=== PATIENT | male | born 1950 | race African-American/Black ===

== ENCOUNTER 2019-05-02 12:52 | Inpatient (IN) ==
[2019-05-02 14:36] LABS: Basophils % 0.2 % (0.0-0.8); Eosinophils # 2.6 10*3/uL (0.0-0.87); Eosinophils % 44.9 % (0.00-10.9); Hemoglobin 11.6 GM/DL (14.0-18.0); Immature Granulocytes % 0.2 %; Immature Granulocytes Absolute 0.01 #; Lymphocytes # 1.1 10*3/uL (1.4-4.0); Lymphocytes % 19.2 % (21.2-54.2); Mean Corpuscular HGB Conc 33.1 GM/DL (32-36); Mean Corpuscular Volume 105.1 FL (87-102); Mean Platelet Volume 9.7 FL (9.6-12.0); Monocytes % 4.5 % (1.7-12.7); Platelet Count 189 T/CUMM (130-400); Red Blood Count 3.33 MC/CUMM (3.8-5.5); Red Cell Distribution Width 13.9 % (9.3-17.3); White Blood Count 5.7 T/CUMM (4-12)
[2019-05-02 14:44] LABS: PT Patient Result 11.2 SECS
[2019-05-02 14:59] LABS: Alanine Aminotransferase 21 U/L (16-61); Albumin 4.1 G/DL (3.4-5.0); Alkaline Phosphatase 84 U/L (45-117); Aspartate Amino Transferase 27 U/L (0-37); Blood Urea Nitrogen 14 MG/DL (7-18); Calcium 9.6 MG/DL (8.5-10.1); Glucose 151 MG/DL (74-106); Osmolality,Calculated 280.5 MOS/KG (273-304); Troponin I < 0.015 NG/ML (0.00-0.045)
[2019-05-02 15:17] LABS: Eosinophils 42 % (0-10); Lymphocytes 16 % (20-55); Segmented Neutrophils 41 % (50-85); Total Cells Counted 100
[2019-05-02 15:18] LABS: Macrocytosis 2+; Platelet Estimate Normal
[2019-05-02 16:21] LABS: Apearance,Urine CLEAR (Clear); Bilirubin,Urine Negative (Negative); Blood, Urine Negative (Negative); Glucose,Urine (UA) Negative (Negative); Hyaline Casts,Urine 17 /LPF (0-3); Ketones,Urine Negative (Negative); Mucus,Urine Few /LPF (Occasional); Nitrite,Urine Negative (Negative); Protein,Urine 30 MG/DL; RBC,Urine 2 /HPF (0-4); Squamous Epithelial Cell,Urine Occasional /HPF (0-10); Urine Color Yellow (Yellow); Urine Urobilinogen < 2.0 EU/DL (0.2-1.0); WBC,Urine 1 /HPF (0-6)
[2019-05-02] MEDS ORDERED: DEXTROSE 50% 25 GM/50 ML VIAL IV PRN (17:20)
[2019-05-02] MEDS ORDERED: ONDANSETRON 4 MG/2 ML VIAL IV PRN (17:20)
[2019-05-02] MEDS ORDERED: ACETAMINOPHEN 325 MG TABLET PO PRN (17:20)
[2019-05-02] MEDS ORDERED: GLUCAGON 1 MG VIAL IM PRN (17:20)
[2019-05-02] MEDS: ENOXAPARIN 40 MG/0.4 ML SYRINGE SUBCUT SCH (18:01)
[2019-05-02] MEDS: INSULIN REGULAR 100 UNIT/ML SUBCUT SCH (20:54)
[2019-05-03 05:19] LABS: Basophils % 0.2 % (0.0-0.8); Eosinophils % 36.5 % (0.00-10.9); Hemoglobin 10.4 GM/DL (14.0-18.0); Immature Granulocytes % 0.2 %; Immature Granulocytes Absolute 0.01 #; Lymphocytes # 1.2 10*3/uL (1.4-4.0); Lymphocytes % 20.9 % (21.2-54.2); Mean Corpuscular HGB Conc 33.5 GM/DL (32-36); Mean Corpuscular Volume 102.6 FL (87-102); Mean Platelet Volume 10.4 FL (9.6-12.0); Monocytes % 5.4 % (1.7-12.7); Neutrophils % 36.8 % (38.7-73.9); Platelet Count 162 T/CUMM (130-400); Red Blood Count 3.02 MC/CUMM (3.8-5.5); White Blood Count 5.5 T/CUMM (4-12)
[2019-05-03 05:53] LABS: Eosinophils 38 % (0-10); Lymphocytes 24 % (20-55); Segmented Neutrophils 33 % (50-85); Total Cells Counted 100
[2019-05-03 05:54] LABS: Anisocytosis 1+; Calcium 9.1 MG/DL (8.5-10.1); Osmolality,Calculated 275.7 MOS/KG (273-304); Platelet Estimate Adequate
[2019-05-03] MEDS ORDERED: BICALUTAMIDE 50 MG TABLET PO SCH (09:00)
[2019-05-03] MEDS ORDERED: ATORVASTATIN 40 MG TABLET PO SCH (09:00)
[2019-05-03] MEDS ORDERED: ASPIRIN EC 81 MG TABLET PO SCH (09:00)
[2019-05-03] MEDS ORDERED: PANTOPRAZOLE 40 MG TABLET PO SCH (09:00)
[2019-05-03] MEDS: INSULIN REGULAR 100 UNIT/ML SUBCUT SCH ×3 (14:58→17:10)
[2019-05-03] MEDS: ENOXAPARIN 40 MG/0.4 ML SYRINGE SUBCUT SCH (17:11)
[2019-05-03 18:16] VITALS: BP 150/95
== END 2019-05-03 18:33 | disposition home or self-care (01) | DRG 74 ==
LOC: N.EDINP 12:52 → N.ED 12:52 → SUATTDRO 15:08 → N.5E 16:16
PROVIDERS: ADMIT Family Medicine; ATTEND Family Medicine

== ENCOUNTER 2020-07-06 00:54 | Inpatient (IN) ==
[2020-07-06] MEDS ORDERED: SODIUM CHLORIDE 0.9% 1,000 ML IV STA ×2 (01:26→03:38)
[2020-07-06 02:24] LABS: Basophils % 0.1 % (0.0-0.8); Eosinophils % 0.3 % (0.00-10.9); Hematocrit 30.4 VOL% (42.0-52.0); Hemoglobin 9.7 GM/DL (14.0-18.0); Immature Granulocytes % 0.5 %; Immature Granulocytes Absolute 0.04 #; Lymphocytes # 0.5 10*3/uL (1.4-4.0); Lymphocytes % 6.3 % (21.2-54.2); Mean Corpuscular HGB Conc 31.9 GM/DL (32-36); Mean Corpuscular Volume 105.6 FL (87-102); Monocytes % 9.3 % (1.7-12.7); Neutrophils % 83.5 % (38.7-73.9); Platelet Count 214 T/CUMM (130-400); Red Blood Count 2.88 MC/CUMM (3.8-5.5); Red Cell Distribution Width 13.7 % (9.3-17.3); White Blood Count 7.5 T/CUMM (4-12)
[2020-07-06 02:42] LABS: Alanine Aminotransferase 11 U/L (16-61); Albumin 3.2 G/DL (3.4-5.0); Alkaline Phosphatase 121 U/L (45-117); Aspartate Amino Transferase 16 U/L (0-37); Blood Urea Nitrogen 28 MG/DL (7-18); Calcium 10.2 MG/DL (8.5-10.1); Estimated Glom Filtration Rate 48 ML/MIN; Glucose 196 MG/DL (74-106); Osmolality,Calculated 274.5 MOS/KG (273-304); Total Protein 7.5 G/DL (6.4-8.3)
[2020-07-06 02:56] LABS: Band Neutrophils 10 % (0-10); Lymphocytes 7 % (20-55); Platelet Estimate Normal; Segmented Neutrophils 74 % (50-85); Total Cells Counted 100
[2020-07-06 02:59] LABS: Macrocytosis 1+; Polychromasia Few
[2020-07-06 03:00] LABS: Anisocytosis Slight; Spherocytes 1+
[2020-07-06] MEDS ORDERED: cefTRIAXone 1,000 MG in SODIUM CHLORIDE 0.9% 100 ML IV STA (03:08)
[2020-07-06 03:41] LABS: Amorphous Crystals,Urine Occasional /HPF (Few); Apearance,Urine Slightly Hazy (Clear); Bilirubin,Urine Negative (Negative); Blood, Urine Negative (Negative); Glucose,Urine (UA) Negative (Negative); Granular Casts,Urine 3 /LPF (0-1); Hyaline Casts,Urine 7 /LPF (0-3); Ketones,Urine Negative (Negative); Mucus,Urine Occasional /LPF (Occasional); Nitrite,Urine Negative (Negative); Protein,Urine 30 MG/DL; Squamous Epithelial Cell,Urine Occasional /HPF (0-10); Urine Color Amber (Yellow); Urine Specific Gravity 1.018 (1.001-1.035)
[2020-07-06] MEDS ORDERED: ONDANSETRON 4 MG/2 ML VIAL IV PRN (05:11)
[2020-07-06] MEDS ORDERED: DEXTROSE 50% 25 GM/50 ML VIAL IV PRN ×2 (05:11→05:30)
[2020-07-06] MEDS ORDERED: GLUCAGON 1 MG VIAL IM PRN (05:11)
[2020-07-06] MEDS ORDERED: NOREPINEPHRINE 8 MG in SODIUM CHLORIDE 0.9% 242 ML IV PRN (05:18)
[2020-07-06] MEDS ORDERED: NOREPINEPHRINE 4 MG/4 ML VIAL IV ONE (05:27)
[2020-07-06] MEDS ORDERED: LACTATED RINGERS 1,000 ML IV SCH (05:30)
[2020-07-06] MEDS ORDERED: MEROPENEM 500 MG in SODIUM CHLORIDE 0.9% 100 ML IV SCH (06:00)
[2020-07-06] MEDS: LACTATED RINGERS 1,000 ML IV SCH ×2 (06:43→15:33)
[2020-07-06] MEDS ORDERED: PNEUMOCOCCAL VACCINE (13 VALENT) 0.5 ML SYRINGE IM ONE (06:45)
[2020-07-06] MEDS: MEROPENEM 500 MG in SODIUM CHLORIDE 0.9% 100 ML IV SCH ×2 (06:57→14:45)
[2020-07-06] MEDS: INSULIN LISPRO 100 UNIT/ML SUBCUT SCH ×4 (08:01→21:31)
[2020-07-06] MEDS: ENOXAPARIN 40 MG/0.4 ML SYRINGE SUBCUT SCH (08:18)
[2020-07-06] MEDS: POLYETHYLENE GLYCOL POWDER 17 GM PACK PO SCH (15:07)
[2020-07-07] MEDS ORDERED: SODIUM CHLORIDE 0.9% 500 ML IV ONE (00:43)
[2020-07-07] MEDS: ACETAMINOPHEN 325 MG TABLET PO PRN ×2 (00:55→15:29)
[2020-07-07 00:56] LABS: Hemoglobin 6.7 GM/DL (14.0-18.0); Immature Granulocytes % 0.5 %; Immature Granulocytes Absolute 0.03 #; Lymphocytes # 0.5 10*3/uL (1.4-4.0); Lymphocytes % 8.7 % (21.2-54.2); Mean Corpuscular HGB Conc 33.5 GM/DL (32-36); Mean Platelet Volume 8.9 FL (9.6-12.0); Monocytes % 11.6 % (1.7-12.7); Neutrophils % 79.2 % (38.7-73.9); Platelet Count 176 T/CUMM (130-400); Red Cell Distribution Width 13.8 % (9.3-17.3); White Blood Count 5.6 T/CUMM (4-12)
[2020-07-07] MEDS: LACTATED RINGERS 1,000 ML IV SCH ×2 (00:56→10:38)
[2020-07-07] MEDS ORDERED: SODIUM CHLORIDE 0.9% 1,000 ML IV PRN (01:38)
[2020-07-07 01:43] LABS: Calcium 8.7 MG/DL (8.5-10.1)
[2020-07-07 01:44] LABS: Osmolality,Calculated 278.4 MOS/KG (273-304)
[2020-07-07 04:20] LABS: Band Neutrophils 13 % (0-10); Lymphocytes 15 % (20-55); Segmented Neutrophils 61 % (50-85); Total Cells Counted 100
[2020-07-07 04:21] LABS: Anisocytosis 1+; Platelet Estimate Normal
[2020-07-07] MEDS: ENOXAPARIN 40 MG/0.4 ML SYRINGE SUBCUT SCH (08:29)
[2020-07-07] MEDS: POLYETHYLENE GLYCOL POWDER 17 GM PACK PO SCH (08:30)
[2020-07-07] MEDS: INSULIN LISPRO 100 UNIT/ML SUBCUT SCH ×4 (08:35→20:57)
[2020-07-07] MEDS: PANTOPRAZOLE 40 MG VIAL IV SCH ×2 (09:55→20:57)
[2020-07-07] MEDS: DEXT 5% NACL 0.9% KCL 20 MEQ 20 MEQ/1,000 ML BAG IV SCH ×2 (12:50→20:56)
[2020-07-07] MEDS: SUCRALFATE 1 GM/10 ML UDCUP PO SCH ×3 (12:53→20:57)
[2020-07-07 14:14] LABS: Hemoglobin 8.4 GM/DL (14.0-18.0)
[2020-07-07 18:17] LABS: Hematocrit 24.5 VOL% (42.0-52.0); Hemoglobin 8.3 GM/DL (14.0-18.0)
[2020-07-08 02:39] LABS: Basophils % 0.2 % (0.0-0.8); Eosinophils % 0.2 % (0.00-10.9); Hematocrit 24.4 VOL% (42.0-52.0); Hemoglobin 8.2 GM/DL (14.0-18.0); Immature Granulocytes % 0.2 %; Immature Granulocytes Absolute 0.01 #; Lymphocytes # 0.7 10*3/uL (1.4-4.0); Mean Corpuscular HGB Conc 33.6 GM/DL (32-36); Mean Corpuscular Volume 94.6 FL (87-102); Monocytes % 8.8 % (1.7-12.7); Neutrophils % 78.6 % (38.7-73.9); Platelet Count 179 T/CUMM (130-400); Red Blood Count 2.58 MC/CUMM (3.8-5.5); Red Cell Distribution Width 17.3 % (9.3-17.3); White Blood Count 5.5 T/CUMM (4-12)
[2020-07-08 02:53] LABS: % Iron Saturation 5.5 % (18-50)
[2020-07-08 02:55] LABS: Ferritin 774.6 ng/ml (26-388)
[2020-07-08 03:06] LABS: Calcium 8.4 MG/DL (8.5-10.1)
[2020-07-08 03:07] LABS: Osmolality,Calculated 292.5 MOS/KG (273-304)
[2020-07-08 03:14] LABS: Anisocytosis 1+; Band Neutrophils 3 % (0-10); Burr Cells 1+; Ferritin 774.6 ng/ml (26-388); Lymphocytes 9 % (20-55); Platelet Estimate Normal; Segmented Neutrophils 84 % (50-85); Total Cells Counted 100
[2020-07-08 03:15] LABS: Microcytosis 1+
[2020-07-08 03:18] LABS: Polychromasia Slight
[2020-07-08 03:39] LABS: Sedimentation Rate-Westergren 121 MM/HR (0-20)
[2020-07-08] MEDS: DEXT 5% NACL 0.9% KCL 20 MEQ 20 MEQ/1,000 ML BAG IV SCH ×3 (05:30→17:56)
[2020-07-08] MEDS ORDERED: LACTATED RINGERS 1,000 ML IV SCH (08:00)
[2020-07-08] MEDS: INSULIN LISPRO 100 UNIT/ML SUBCUT SCH ×4 (08:21→21:31)
[2020-07-08] MEDS: SUCRALFATE 1 GM/10 ML UDCUP PO SCH ×4 (08:33→21:31)
[2020-07-08] MEDS ORDERED: IRON SUCROSE 300 MG in SODIUM CHLORIDE 0.9% 100 ML IV ONE (08:48)
[2020-07-08] MEDS ORDERED: propofoL 200 MG/20 ML VIAL IV ONE (09:00)
[2020-07-08] MEDS ORDERED: LIDOCAINE 100 MG/5 ML SYRINGE ONE (09:00)
[2020-07-08 10:02] LABS: Vitamin B12 421 PG/ML (211-911)
[2020-07-08] MEDS: POLYETHYLENE GLYCOL POWDER 17 GM PACK PO SCH (11:28)
[2020-07-08] MEDS: PANTOPRAZOLE 40 MG VIAL IV SCH ×2 (11:29→21:28)
[2020-07-08 11:58] LABS: Hematocrit 26.6 VOL% (42.0-52.0); Hemoglobin 9.1 GM/DL (14.0-18.0)
[2020-07-08] MEDS ORDERED: BISACODYL 5 MG TABLET PO ONE (12:00)
[2020-07-08] MEDS ORDERED: FLUCONAZOLE INJ 200 MG in PREMIX 1 EACH IV ONE (12:18)
[2020-07-08] MEDS ORDERED: POLYETHYLENE GLYCOL POWDER 255 GM BOTTLE PO ONE (18:00)
[2020-07-09 05:40] LABS: Basophils % 0.4 % (0.0-0.8); Eosinophils # 0.1 10*3/uL (0.0-0.87); Eosinophils % 1.6 % (0.00-10.9); Hematocrit 25.3 VOL% (42.0-52.0); Hemoglobin 8.9 GM/DL (14.0-18.0); Immature Granulocytes % 8.3 %; Immature Granulocytes Absolute 0.46 #; Lymphocytes # 0.9 10*3/uL (1.4-4.0); Lymphocytes % 15.5 % (21.2-54.2); Mean Corpuscular HGB Conc 35.2 GM/DL (32-36); Mean Corpuscular Volume 92.3 FL (87-102); Mean Platelet Volume 9.5 FL (9.6-12.0); Neutrophils % 63.2 % (38.7-73.9); Platelet Count 198 T/CUMM (130-400); Red Blood Count 2.74 MC/CUMM (3.8-5.5); Red Cell Distribution Width 17.8 % (9.3-17.3); White Blood Count 5.5 T/CUMM (4-12)
[2020-07-09 05:51] LABS: INR 1.1
[2020-07-09 06:03] LABS: Band Neutrophils 4 % (0-10); Eosinophils 3 % (0-10); Hypochromasia Slight; Lymphocytes 17 % (20-55); Segmented Neutrophils 62 % (50-85); Total Cells Counted 100
[2020-07-09 06:04] LABS: Acanthocytes Few; Microcytosis 1+; Ovalocytes Slight
[2020-07-09 06:05] LABS: Platelet Estimate Adequate
[2020-07-09 06:10] LABS: Calcium 8.9 MG/DL (8.5-10.1); Osmolality,Calculated 289.1 MOS/KG (273-304)
[2020-07-09] MEDS ORDERED: BISACODYL 5 MG TABLET PO ONE (08:10)
[2020-07-09] MEDS ORDERED: POLYETHYLENE GLYCOL POWDER 255 GM BOTTLE PO ONE (08:10)
[2020-07-09 09:16] LABS: Hemoglobin A1 (Alkaline) 98.2 % (96.5-98.5); Hemoglobin A2 (Alkaline) 1.8 % (1.5-3.5)
[2020-07-09] MEDS ORDERED: POTASSIUM CHLORIDE 20 MEQ TABLET PO ONE (09:26)
[2020-07-09] MEDS: SUCRALFATE 1 GM/10 ML UDCUP PO SCH ×4 (09:48→21:58)
[2020-07-09] MEDS: INSULIN LISPRO 100 UNIT/ML SUBCUT SCH ×4 (09:49→21:47)
[2020-07-09] MEDS: DEXT 5% NACL 0.9% KCL 20 MEQ 20 MEQ/1,000 ML BAG IV SCH ×3 (09:49→17:46)
[2020-07-09] MEDS: LACTATED RINGERS 1,000 ML IV SCH (09:50)
[2020-07-09] MEDS: POLYETHYLENE GLYCOL POWDER 17 GM PACK PO SCH (09:51)
[2020-07-09] MEDS: PANTOPRAZOLE 40 MG VIAL IV SCH ×2 (09:52→21:58)
[2020-07-09] MEDS ORDERED: IRON SUCROSE 300 MG in SODIUM CHLORIDE 0.9% 100 ML IV ONE (10:00)
[2020-07-09] MEDS: FLUCONAZOLE INJ 100 MG in IV BAG 1 EACH IV SCH (12:11)
[2020-07-09 21:50] LABS: Soluble Transf Receptor (sTfR) 2.4 mg/L (1.8 - 4.6)
[2020-07-09] MEDS: POTASSIUM CHLORIDE 20 MEQ TABLET PO SCH (21:58)
[2020-07-10] MEDS: DEXT 5% NACL 0.9% KCL 20 MEQ 20 MEQ/1,000 ML BAG IV SCH ×2 (02:39→22:33)
[2020-07-10 06:18] LABS: Basophils % 0.3 % (0.0-0.8); Eosinophils # 0.2 10*3/uL (0.0-0.87); Eosinophils % 2.6 % (0.00-10.9); Hematocrit 26.1 VOL% (42.0-52.0); Hemoglobin 8.8 GM/DL (14.0-18.0); Immature Granulocytes % 1.4 %; Immature Granulocytes Absolute 0.09 #; Lymphocytes # 1.1 10*3/uL (1.4-4.0); Lymphocytes % 17.3 % (21.2-54.2); Mean Corpuscular HGB Conc 33.7 GM/DL (32-36); Mean Corpuscular Volume 93.2 FL (87-102); Monocytes % 12.6 % (1.7-12.7); Neutrophils % 65.8 % (38.7-73.9); Platelet Count 194 T/CUMM (130-400); Red Cell Distribution Width 17.5 % (9.3-17.3); White Blood Count 6.4 T/CUMM (4-12)
[2020-07-10 06:27] LABS: Calcium 9.3 MG/DL (8.5-10.1); Osmolality,Calculated 290.7 MOS/KG (273-304)
[2020-07-10 07:02] LABS: Anisocytosis 2+; Band Neutrophils 13 % (0-10); Burr Cells 1+; Eosinophils 4 % (0-10); Lymphocytes 19 % (20-55); Nucleated Red Blood Cells 1 (0-5); Platelet Estimate Normal; Poikilocytosis Slight; Segmented Neutrophils 50 % (50-85); Total Cells Counted 100
[2020-07-10 07:03] LABS: Macrocytosis 1+
[2020-07-10] MEDS: LACTATED RINGERS 1,000 ML IV SCH (07:58)
[2020-07-10] MEDS: SUCRALFATE 1 GM/10 ML UDCUP PO SCH ×4 (07:58→22:25)
[2020-07-10] MEDS: INSULIN LISPRO 100 UNIT/ML SUBCUT SCH ×4 (07:59→22:26)
[2020-07-10] MEDS: POTASSIUM CHLORIDE 20 MEQ TABLET PO SCH ×2 (08:06→22:24)
[2020-07-10] MEDS: POLYETHYLENE GLYCOL POWDER 17 GM PACK PO SCH ×2 (08:06→22:25)
[2020-07-10] MEDS: PANTOPRAZOLE 40 MG VIAL IV SCH (08:06)
[2020-07-10] MEDS ORDERED: propofoL 200 MG/20 ML VIAL IV ONE (09:00)
[2020-07-10] MEDS ORDERED: LIDOCAINE 2% 5 ML VIAL ONE (09:00)
[2020-07-10] MEDS ORDERED: IRON SUCROSE 300 MG in SODIUM CHLORIDE 0.9% 100 ML IV ONE (13:00)
[2020-07-10] MEDS: FLUCONAZOLE INJ 100 MG in IV BAG 1 EACH IV SCH (13:00)
[2020-07-10] MEDS: PANTOPRAZOLE 40 MG TABLET PO SCH (22:24)
[2020-07-10] MEDS: DOCUSATE SODIUM 100 MG CAPSULE PO SCH (22:24)
[2020-07-10] MEDS: ACETAMINOPHEN 325 MG TABLET PO PRN (22:24)
[2020-07-11] MEDS: DEXT 5% NACL 0.9% KCL 20 MEQ 20 MEQ/1,000 ML BAG IV SCH ×3 (03:03→14:57)
[2020-07-11 05:12] LABS: Basophils % 0.1 % (0.0-0.8); Eosinophils # 0.4 10*3/uL (0.0-0.87); Eosinophils % 4.7 % (0.00-10.9); Hematocrit 24.6 VOL% (42.0-52.0); Hemoglobin 8.3 GM/DL (14.0-18.0); Immature Granulocytes % 0.8 %; Immature Granulocytes Absolute 0.06 #; Lymphocytes # 1.4 10*3/uL (1.4-4.0); Lymphocytes % 18.7 % (21.2-54.2); Mean Corpuscular HGB Conc 33.7 GM/DL (32-36); Mean Corpuscular Volume 93.9 FL (87-102); Mean Platelet Volume 9.8 FL (9.6-12.0); Monocytes % 11.7 % (1.7-12.7); Platelet Count 189 T/CUMM (130-400); Red Blood Count 2.62 MC/CUMM (3.8-5.5); Red Cell Distribution Width 17.3 % (9.3-17.3); White Blood Count 7.4 T/CUMM (4-12)
[2020-07-11 05:40] LABS: Calcium 8.7 MG/DL (8.5-10.1); Osmolality,Calculated 285.1 MOS/KG (273-304)
[2020-07-11 05:55] LABS: Band Neutrophils 2 % (0-10); Eosinophils 7 % (0-10); Lymphocytes 17 % (20-55); Metamyelocytes 1 %; Platelet Estimate Normal; Segmented Neutrophils 61 % (50-85); Total Cells Counted 100
[2020-07-11 05:56] LABS: Anisocytosis 1+; Hypochromasia 2+; Macrocytosis 1+
[2020-07-11] MEDS: INSULIN LISPRO 100 UNIT/ML SUBCUT SCH ×3 (07:55→17:23)
[2020-07-11] MEDS: SUCRALFATE 1 GM/10 ML UDCUP PO SCH ×3 (07:55→17:11)
[2020-07-11] MEDS ORDERED: FLUCONAZOLE 100 MG TABLET PO SCH (09:00)
[2020-07-11] MEDS ORDERED: CHOLECALCIFEROL 1,000 UNIT TABLET PO SCH (09:00)
[2020-07-11] MEDS: PANTOPRAZOLE 40 MG TABLET PO SCH (11:21)
[2020-07-11] MEDS: DOCUSATE SODIUM 100 MG CAPSULE PO SCH (11:22)
[2020-07-11] MEDS: POLYETHYLENE GLYCOL POWDER 17 GM PACK PO SCH (11:22)
[2020-07-11] MEDS: POTASSIUM CHLORIDE 20 MEQ TABLET PO SCH (11:26)
[2020-07-11 15:59] VITALS: BP 152/65
[2020-07-12] MEDS ORDERED: POTASSIUM CHLORIDE 20 MEQ TABLET PO SCH (09:00)
== END 2020-07-11 17:45 | disposition home health service (06) | DRG 377 ==
LOC: EDBD → EDUNIT# → N.ED 00:54 → SUATTDRO 05:11 → N.EDINP 05:11 → N.ICU 06:13 → N.4E 14:06
PROVIDERS: ADMIT Internal Medicine; ATTEND Hospitalist

== ENCOUNTER 2020-11-16 18:57 | Observation (INO) ==
[2020-11-16] MEDS ORDERED: SODIUM CHLORIDE 0.9% 500 ML IV STA (19:22)
[2020-11-16 20:15] LABS: Basophils % 0.5 % (0.0-0.8); Eosinophils # 0.2 10*3/uL (0.0-0.87); Eosinophils % 9.5 % (0.00-10.9); Lymphocytes # 0.5 10*3/uL (1.4-4.0); Lymphocytes % 26.1 % (21.2-54.2); Mean Corpuscular HGB Conc 31.4 GM/DL (32-36); Mean Corpuscular Volume 110.5 FL (87-102); Mean Platelet Volume 8.9 FL (9.6-12.0); Monocytes # 0.2 10*3/uL (0.11-0.8); Monocytes % 7.5 % (1.7-12.7); Neutrophils % 56.4 % (38.7-73.9); Platelet Count 121 T/CUMM (130-400); Red Blood Count 1.24 MC/CUMM (3.8-5.5); Red Cell Distribution Width 13.9 % (9.3-17.3)
[2020-11-16 20:20] LABS: Hematocrit 13.7 VOL% (42.0-52.0); Hemoglobin 4.3 GM/DL (14.0-18.0)
[2020-11-16 20:24] LABS: INR 1.4; PT Patient Result 15.2 SECS (9.8-11.9)
[2020-11-16 20:35] LABS: Eosinophils 11 % (0-10); Lymphocytes 25 % (20-55); Total Cells Counted 100
[2020-11-16 20:36] LABS: Anisocytosis 1+; Burr Cells Few; Elliptocytes Few; Hypochromia 1+; Microcytosis 1+; Poikilocytosis Few
[2020-11-16 20:37] LABS: Platelet Estimate Adequate; Schistocytes Few
[2020-11-16 20:40] LABS: Troponin I 0.021 NG/ML (0.00-0.045)
[2020-11-16 20:44] LABS: Bilirubin,Urine Negative (Negative); Blood, Urine Small mg/dL (Negative); Glucose,Urine (UA) Negative (Negative); Ketones,Urine Negative (Negative); Mucus,Urine Occasional /LPF (Occasional); Nitrite,Urine Negative (Negative); Protein,Urine Negative; RBC,Urine 1 /HPF (0-4); Urine Appearance CLEAR (Clear); Urine Color Yellow (Yellow); Urine Specific Gravity 1.017 (1.001-1.035); Urine Urobilinogen < 2.0 EU/DL (0.2-1.0); WBC,Urine 1 /HPF (0-6)
[2020-11-16] MEDS ORDERED: SODIUM CHLORIDE 0.9% 1,000 ML IV PRN (20:45)
[2020-11-16 20:46] LABS: Alanine Aminotransferase < 6 U/L (16-61); Albumin 1.1 G/DL (3.4-5.0); Alkaline Phosphatase 40 U/L (45-117); Aspartate Amino Transferase < 3 U/L (0-37); Bilirubin,Total < 0.39 MG/DL (0.2-1.0); Blood Urea Nitrogen 7 MG/DL (7-18); Carbon Dioxide 10 MMOL/L (21-32); Chloride 131 MMOL/L (98-107); Estimated Glom Filtration Rate 179 ML/MIN; Glucose 51 MG/DL (74-106); Osmolality,Calculated 295.7 MOS/KG (273-304); Sodium 152 MMOL/L (136-145); Total Protein 2.8 G/DL (6.4-8.3)
[2020-11-16 20:50] LABS: Barbiturates Screen,Urine Negative (Negative); Benzodiazepines Screen,Urine Negative (Negative); Cannabinoid Screen,Urine Negative (Negative); Opiate Screen,Urine Negative (Negative); Phencyclidine Screen,Urine Negative (Negative)
[2020-11-16 21:03] LABS: Calcium < 5.0 MG/DL (8.5-10.1); Potassium 1.9 MMOL/L (3.5-5.1)
[2020-11-16 21:14] LABS: Folate 9.3 NG/ML (5.4-24.0); Vitamin B12 84 PG/ML (211-911)
[2020-11-16 21:27] LABS: Basophils % 0.4 % (0.0-0.8); Eosinophils # 0.4 10*3/uL (0.0-0.87); Eosinophils % 8.3 % (0.00-10.9); Hematocrit 27.3 VOL% (42.0-52.0); Immature Granulocytes % 0.2 %; Immature Granulocytes Absolute 0.01 #; Lymphocytes # 1.2 10*3/uL (1.4-4.0); Lymphocytes % 27.4 % (21.2-54.2); Mean Corpuscular Volume 105.8 FL (87-102); Mean Platelet Volume 9.5 FL (9.6-12.0); Monocytes # 0.4 10*3/uL (0.11-0.8); Monocytes % 8.3 % (1.7-12.7); Neutrophils % 55.4 % (38.7-73.9); Platelet Count 262 T/CUMM (130-400); Red Blood Count 2.58 MC/CUMM (3.8-5.5); Red Cell Distribution Width 13.9 % (9.3-17.3); White Blood Count 4.5 T/CUMM (4-12)
[2020-11-16 21:50] LABS: Alanine Aminotransferase 9 U/L (16-61); Albumin 2.7 G/DL (3.4-5.0); Alkaline Phosphatase 98 U/L (45-117); Aspartate Amino Transferase 11 U/L (0-37); Bilirubin,Total < 0.39 MG/DL (0.2-1.0); Blood Urea Nitrogen 15 MG/DL (7-18); Calcium 8.8 MG/DL (8.5-10.1); Carbon Dioxide 20 MMOL/L (21-32); Chloride 114 MMOL/L (98-107); Estimated Glom Filtration Rate 97 ML/MIN; Glucose 121 MG/DL (74-106); Osmolality,Calculated 282.3 MOS/KG (273-304); Potassium 4.4 MMOL/L (3.5-5.1); Sodium 141 MMOL/L (136-145); Total Protein 6.8 G/DL (6.4-8.3)
[2020-11-16] MEDS ORDERED: ASPIRIN 325 MG TABLET PO STA (22:07)
[2020-11-16] MEDS ORDERED: LABETALOL 20 MG/4 ML SYRINGE IV PRN (22:16)
[2020-11-16] MEDS ORDERED: DEXTROSE 50% 25 GM/50 ML VIAL IV PRN (22:27)
[2020-11-16] MEDS ORDERED: GLUCAGON 1 MG VIAL IM PRN (22:27)
[2020-11-16 22:30] LABS: Sedimentation Rate-Westergren 85 MM/HR (0-20)
[2020-11-16] MEDS ORDERED: MAGNESIUM SULF RIDER 2 GM in PREMIX 1 EACH IV ONE (23:00)
[2020-11-16] MEDS ORDERED: diphenhydrAMINE CAP 25 MG CAPSULE PO PRN (23:49)
[2020-11-16] MEDS ORDERED: ACETAMINOPHEN 500 MG TABLET PO PRN (23:50)
[2020-11-17 08:08] LABS: Albumin 2.9 G/DL (3.4-5.0); Bilirubin,Total 0.4 MG/DL (0.2-1.0); Calcium 8.9 MG/DL (8.5-10.1); Osmolality,Calculated 272.8 MOS/KG (273-304); Potassium 3.8 MMOL/L (3.5-5.1); Risk Ratio 2.3; VLDL Cholesterol 17.4 MG/DL
[2020-11-17] MEDS ORDERED: ATORVASTATIN 40 MG TABLET PO SCH (09:00)
[2020-11-17] MEDS ORDERED: ASPIRIN 325 MG TABLET PO SCH (09:00)
[2020-11-17] MEDS ORDERED: POTASSIUM CHLORIDE 20 MEQ TABLET PO SCH (09:00)
[2020-11-17] MEDS ORDERED: PANTOPRAZOLE 40 MG TABLET PO SCH (09:00)
[2020-11-17] MEDS ORDERED: ENOXAPARIN 40 MG/0.4 ML SYRINGE SUBCUT SCH (09:00)
[2020-11-17] MEDS: INSULIN REGULAR 100 UNIT/ML SUBCUT SCH ×3 (09:19→16:29)
[2020-11-17 15:34] VITALS: BP 138/85
[2020-11-20 09:25] LABS: Hemoglobin A1 (Alkaline) 97.8 % (96.5-98.5); Hemoglobin A2 (Alkaline) 2.2 % (1.5-3.5)
== END 2020-11-17 17:25 | disposition home or self-care (01) ==
LOC: EDUNIT# → EDBD → N.EDINP 18:57 → N.ED 18:57 → N.TELES 23:43
PROVIDERS: ADMIT Internal Medicine; ATTEND Internal Medicine

== ENCOUNTER 2021-01-21 10:48 | Observation (INO) ==
[2021-01-21 11:47] LABS: Basophils % 0.2 % (0.0-0.8); Eosinophils # 0.8 10*3/uL (0.0-0.87); Eosinophils % 16.7 % (0.00-10.9); Hematocrit 27.9 VOL% (42.0-52.0); Hemoglobin 9.1 GM/DL (14.0-18.0); Immature Granulocytes % 0.4 %; Immature Granulocytes Absolute 0.02 #; Lymphocytes % 20.3 % (21.2-54.2); Mean Corpuscular HGB Conc 32.6 GM/DL (32-36); Mean Corpuscular Volume 106.1 FL (87-102); Mean Platelet Volume 9.3 FL (9.6-12.0); Monocytes % 9.1 % (1.7-12.7); Neutrophils % 53.3 % (38.7-73.9); Platelet Count 258 T/CUMM (130-400); Red Blood Count 2.63 MC/CUMM (3.8-5.5); Red Cell Distribution Width 12.3 % (9.3-17.3)
[2021-01-21 11:58] LABS: Partial Thromboplastin Time 32.4 SECS (23.9-33.8)
[2021-01-21 12:11] LABS: Eosinophils 15 % (0-10); Lymphocytes 22 % (20-55); Segmented Neutrophils 58 % (50-85); Total Cells Counted 100
[2021-01-21 12:12] LABS: Macrocytosis 1+
[2021-01-21 12:14] LABS: Alanine Aminotransferase < 9 U/L (16-61); Albumin 2.7 G/DL (3.4-5.0); Alkaline Phosphatase 85 U/L (45-117); Aspartate Amino Transferase 9 U/L (0-37); Bilirubin,Total < 0.39 MG/DL (0.2-1.0); Blood Urea Nitrogen 25 MG/DL (7-18); Calcium 8.5 MG/DL (8.5-10.1); Carbon Dioxide 20 MMOL/L (21-32); Estimated Glom Filtration Rate 98 ML/MIN; Glucose 141 MG/DL (74-106); Osmolality,Calculated 284.4 MOS/KG (273-304); Platelet Estimate Adequate; Potassium 4.3 MMOL/L (3.5-5.1); Sodium 140 MMOL/L (136-145); Total Protein 6.7 G/DL (6.4-8.3)
[2021-01-21 12:49] LABS: Bilirubin,Urine Negative (Negative); Blood, Urine Small mg/dL (Negative); Glucose,Urine (UA) Negative (Negative); Hyaline Casts,Urine 27 /LPF (0-3); Ketones,Urine Negative (Negative); Mucus,Urine Occasional /LPF (Occasional); Nitrite,Urine Negative (Negative); Protein,Urine Negative; RBC,Urine 2 /HPF (0-4); Urine Appearance CLEAR (Clear); Urine Color Yellow (Yellow); Urine Urobilinogen < 2.0 EU/DL (0.2-1.0); WBC,Urine 1 /HPF (0-6)
[2021-01-21 12:51] LABS: Barbiturates Screen,Urine Negative (Negative); Benzodiazepines Screen,Urine Negative (Negative); Cannabinoid Screen,Urine Negative (Negative); Opiate Screen,Urine Negative (Negative); Phencyclidine Screen,Urine Negative (Negative)
[2021-01-21] MEDS ORDERED: hydrALAZINE 20 MG/1 ML VIAL IV PRN (15:06)
[2021-01-21] MEDS ORDERED: ONDANSETRON 4 MG/2 ML VIAL IV PRN (15:06)
[2021-01-21] MEDS ORDERED: DEXTROSE 50% 25 GM/50 ML VIAL IV PRN ×2 (15:06)
[2021-01-21] MEDS ORDERED: ACETAMINOPHEN 325 MG TABLET PO PRN (15:06)
[2021-01-21] MEDS ORDERED: GLUCAGON 1 MG VIAL IM PRN (15:06)
[2021-01-21] MEDS ORDERED: ENOXAPARIN 40 MG/0.4 ML SYRINGE SUBCUT SCH (15:30)
[2021-01-21] MEDS: INSULIN LISPRO 100 UNIT/ML SUBCUT SCH ×2 (19:23→20:47)
[2021-01-21] MEDS: SODIUM CHLORIDE 0.9% 1,000 ML IV SCH ×2 (19:50→22:21)
[2021-01-22 05:53] LABS: Basophils % 0.5 % (0.0-0.8); Eosinophils # 0.9 10*3/uL (0.0-0.87); Eosinophils % 21.3 % (0.00-10.9); Hematocrit 27.9 VOL% (42.0-52.0); Hemoglobin 8.4 GM/DL (14.0-18.0); Immature Granulocytes % 0.5 %; Immature Granulocytes Absolute 0.02 #; Lymphocytes # 1.4 10*3/uL (1.4-4.0); Lymphocytes % 31.2 % (21.2-54.2); Mean Corpuscular HGB Conc 30.1 GM/DL (32-36); Mean Corpuscular Volume 111.2 FL (87-102); Mean Platelet Volume 9.5 FL (9.6-12.0); Monocytes % 11.2 % (1.7-12.7); Neutrophils % 35.3 % (38.7-73.9); Platelet Count 237 T/CUMM (130-400); Red Blood Count 2.51 MC/CUMM (3.8-5.5); Red Cell Distribution Width 12.2 % (9.3-17.3); White Blood Count 4.4 T/CUMM (4-12)
[2021-01-22 06:22] LABS: Calcium 8.9 MG/DL (8.5-10.1); Osmolality,Calculated 278.7 MOS/KG (273-304); Thyroid Stimulating Hormone 4.18 uIU/ml (0.358-3.74)
[2021-01-22 06:39] LABS: Anisocytosis 2+; Band Neutrophils 2 % (0-10); Eosinophils 21 % (0-10); Lymphocytes 33 % (20-55); Platelet Estimate Normal; Segmented Neutrophils 36 % (50-85); Total Cells Counted 100
[2021-01-22 06:40] LABS: Burr Cells Few; Macrocytosis 1+
[2021-01-22] MEDS ORDERED: MAGNESIUM SULF RIDER 2 GM in PREMIX 1 EACH IV PRN (07:20)
[2021-01-22] MEDS ORDERED: MAGNESIUM SULF RIDER 4 GM in PREMIX 1 EACH IV PRN (07:20)
[2021-01-22] MEDS: INSULIN LISPRO 100 UNIT/ML SUBCUT SCH ×2 (08:29→12:38)
[2021-01-22] MEDS ORDERED: PANTOPRAZOLE 40 MG TABLET PO SCH (09:00)
[2021-01-22] MEDS ORDERED: ATORVASTATIN 40 MG TABLET PO SCH (09:00)
[2021-01-22] MEDS ORDERED: LEUPROLIDE (3 MONTH) 22.5 MG SYRINGE SUBCUT ONE (09:04)
[2021-01-22] MEDS: SODIUM CHLORIDE 0.9% 1,000 ML IV SCH (10:30)
[2021-01-22 11:24] VITALS: BP 135/97
== END 2021-01-22 15:20 | disposition home or self-care (01) ==
LOC: N.EDINP 10:48 → N.ED 10:48 → N.EDINP 16:56 → N.4E 18:12
PROVIDERS: ADMIT Internal Medicine; ATTEND Internal Medicine

== ENCOUNTER 2021-10-21 15:15 | Inpatient (IN) ==
[2021-10-21 16:21] LABS: Basophils % 0.3 % (0.0-0.8); Eosinophils % 0.5 % (0.00-10.9); Hematocrit 25.5 VOL% (42.0-52.0); Hemoglobin 8.2 GM/DL (14.0-18.0); Immature Granulocytes % 0.5 %; Immature Granulocytes Absolute 0.02 #; Lymphocytes # 1.3 10*3/uL (1.4-4.0); Lymphocytes % 33.3 % (21.2-54.2); Mean Corpuscular HGB Conc 32.2 GM/DL (32-36); Mean Corpuscular Volume 102.8 FL (87-102); Mean Platelet Volume 10.8 FL (9.6-12.0); Monocytes % 5.3 % (1.7-12.7); Neutrophils % 60.1 % (38.7-73.9); Platelet Count 216 T/CUMM (130-400); Red Blood Count 2.48 MC/CUMM (3.8-5.5); Red Cell Distribution Width 16.2 % (9.3-17.3); White Blood Count 3.9 T/CUMM (4-12)
[2021-10-21 16:47] LABS: Albumin 1.6 G/DL (3.4-5.0); Bilirubin,Total 0.4 MG/DL (0.20-1.00); Potassium 3.3 MMOL/L (3.5-5.1); Total Protein 4.9 G/DL (6.4-8.2)
[2021-10-21] MEDS ORDERED: FUROSEMIDE 40 MG/4 ML VIAL IV STA (20:19)
[2021-10-21] MEDS ORDERED: POTASSIUM CHLORIDE 20 MEQ TABLET PO STA (21:05)
[2021-10-21] MEDS ORDERED: VANCOMYCIN 50 MG/ML 60 ML/BOTTLE PO STA (21:27)
[2021-10-21] MEDS ORDERED: metroNIDAZOLE 500 MG TABLET PO STA (21:27)
[2021-10-21 22:12] LABS: Bilirubin,Urine Negative (Negative); Blood, Urine Negative (Negative); Glucose,Urine (UA) Negative (Negative); Ketones,Urine Negative (Negative); Mucus,Urine Occasional /LPF (Occasional); Nitrite,Urine Negative (Negative); Protein,Urine Negative; RBC,Urine 1 /HPF (0-4); Squamous Epithelial Cell,Urine Occasional /HPF (0-10); Urine Appearance CLEAR (Clear); Urine Color Straw (Yellow); Urine Specific Gravity 1.014 (1.001-1.035); Urine Urobilinogen < 2.0 EU/DL (0.2-1.0)
[2021-10-21] MEDS ORDERED: DEXTROSE 50% 25 GM/50 ML SYRINGE IV PRN (22:20)
[2021-10-21] MEDS ORDERED: ACETAMINOPHEN 325 MG TABLET PO PRN (22:20)
[2021-10-21] MEDS ORDERED: GLUCAGON 1 MG VIAL IM PRN (22:20)
[2021-10-21] MEDS ORDERED: ONDANSETRON 4 MG/2 ML VIAL IV PRN (22:20)
[2021-10-22] MEDS: VANCOMYCIN 50 MG/ML 60 ML/BOTTLE PO SCH ×4 (05:16→19:10)
[2021-10-22 07:02] LABS: Eosinophils % 0.8 % (0.00-10.9); Hematocrit 24.8 VOL% (42.0-52.0); Hemoglobin 7.9 GM/DL (14.0-18.0); Immature Granulocytes % 0.4 %; Immature Granulocytes Absolute 0.02 #; Lymphocytes # 1.3 10*3/uL (1.4-4.0); Mean Corpuscular HGB Conc 31.9 GM/DL (32-36); Mean Corpuscular Volume 103.3 FL (87-102); Mean Platelet Volume 10.7 FL (9.6-12.0); Monocytes % 8.2 % (1.7-12.7); Neutrophils % 63.6 % (38.7-73.9); Platelet Count 186 T/CUMM (130-400); Red Cell Distribution Width 16.6 % (9.3-17.3)
[2021-10-22 07:17] LABS: Albumin 1.5 G/DL (3.4-5.0); Bilirubin,Total 0.9 MG/DL (0.20-1.00); Calcium 7.2 MG/DL (8.5-10.1); Osmolality,Calculated 280.4 MOS/KG (273-304); Potassium 3.4 MMOL/L (3.5-5.1); Total Protein 4.7 G/DL (6.4-8.2)
[2021-10-22 07:21] LABS: Folate 7.06 NG/ML (5.38-24.0)
[2021-10-22] MEDS: INSULIN REGULAR 100 UNIT/ML SUBCUT SCH ×4 (09:08→21:39)
[2021-10-22] MEDS: RIFAXIMIN 550 MG TABLET PO SCH ×2 (09:55→21:41)
[2021-10-22] MEDS: PANTOPRAZOLE 40 MG TABLET PO SCH (09:57)
[2021-10-22] MEDS: ASPIRIN EC 81 MG TABLET PO SCH (10:46)
[2021-10-22] MEDS: BICALUTAMIDE 50 MG TABLET PO SCH (10:47)
[2021-10-22] MEDS: POTASSIUM CHLORIDE 20 MEQ TABLET PO SCH ×2 (10:47→21:41)
[2021-10-22] MEDS: DOCUSATE SODIUM 100 MG CAPSULE PO SCH ×2 (10:47→21:39)
[2021-10-22] MEDS: ATORVASTATIN 40 MG TABLET PO SCH (10:48)
[2021-10-22] MEDS ORDERED: MAGNESIUM SULF RIDER 2 GM/50 ML PREMIX IV ONE (11:00)
[2021-10-23] MEDS: VANCOMYCIN 50 MG/ML 60 ML/BOTTLE PO SCH ×5 (00:40→23:47)
[2021-10-23] MEDS ORDERED: MAGNESIUM SULF RIDER 4 GM/100 ML PREMIX IV PRN (05:00)
[2021-10-23] MEDS ORDERED: MAGNESIUM SULF RIDER 2 GM/50 ML PREMIX IV PRN (05:00)
[2021-10-23 05:16] LABS: Basophils % 0.2 % (0.0-0.8); Eosinophils % 0.2 % (0.00-10.9); Hematocrit 25.9 VOL% (42.0-52.0); Hemoglobin 8.2 GM/DL (14.0-18.0); Immature Granulocytes % 0.2 %; Immature Granulocytes Absolute 0.01 #; Lymphocytes # 1.1 10*3/uL (1.4-4.0); Lymphocytes % 25.1 % (21.2-54.2); Mean Corpuscular HGB Conc 31.7 GM/DL (32-36); Mean Platelet Volume 10.9 FL (9.6-12.0); Neutrophils % 65.3 % (38.7-73.9); Platelet Count 212 T/CUMM (130-400); Red Blood Count 2.49 MC/CUMM (3.8-5.5); Red Cell Distribution Width 16.3 % (9.3-17.3); White Blood Count 4.2 T/CUMM (4-12)
[2021-10-23 05:53] LABS: Calcium 7.2 MG/DL (8.5-10.1)
[2021-10-23] MEDS: INSULIN REGULAR 100 UNIT/ML SUBCUT SCH ×4 (08:10→22:20)
[2021-10-23] MEDS: BICALUTAMIDE 50 MG TABLET PO SCH (09:22)
[2021-10-23] MEDS: DOCUSATE SODIUM 100 MG CAPSULE PO SCH ×2 (09:22→22:05)
[2021-10-23] MEDS: ATORVASTATIN 40 MG TABLET PO SCH (09:22)
[2021-10-23] MEDS: RIFAXIMIN 550 MG TABLET PO SCH ×2 (09:22→22:07)
[2021-10-23] MEDS: POTASSIUM CHLORIDE 20 MEQ TABLET PO SCH ×2 (09:22→22:07)
[2021-10-23] MEDS: ASPIRIN EC 81 MG TABLET PO SCH (09:22)
[2021-10-23] MEDS: PANTOPRAZOLE 40 MG TABLET PO SCH (09:22)
[2021-10-24] MEDS: VANCOMYCIN 50 MG/ML 60 ML/BOTTLE PO SCH ×3 (05:50→17:23)
[2021-10-24] MEDS: ASPIRIN EC 81 MG TABLET PO SCH (09:42)
[2021-10-24] MEDS: POTASSIUM CHLORIDE 20 MEQ TABLET PO SCH ×2 (09:42→21:08)
[2021-10-24] MEDS: RIFAXIMIN 550 MG TABLET PO SCH ×2 (09:42→21:08)
[2021-10-24] MEDS: ATORVASTATIN 40 MG TABLET PO SCH (09:42)
[2021-10-24] MEDS: DOCUSATE SODIUM 100 MG CAPSULE PO SCH ×2 (09:42→21:08)
[2021-10-24] MEDS: PANTOPRAZOLE 40 MG TABLET PO SCH (09:42)
[2021-10-24] MEDS: BICALUTAMIDE 50 MG TABLET PO SCH (09:42)
[2021-10-24] MEDS: INSULIN REGULAR 100 UNIT/ML SUBCUT SCH ×4 (09:43→21:09)
[2021-10-25] MEDS: VANCOMYCIN 50 MG/ML 60 ML/BOTTLE PO SCH ×4 (00:22→23:46)
[2021-10-25] MEDS: INSULIN REGULAR 100 UNIT/ML SUBCUT SCH ×3 (13:19→21:36)
[2021-10-25] MEDS: ASPIRIN EC 81 MG TABLET PO SCH (13:20)
[2021-10-25] MEDS: BICALUTAMIDE 50 MG TABLET PO SCH (13:20)
[2021-10-25] MEDS: PANTOPRAZOLE 40 MG TABLET PO SCH (13:20)
[2021-10-25] MEDS: POTASSIUM CHLORIDE 20 MEQ TABLET PO SCH ×2 (13:20→21:33)
[2021-10-25] MEDS: ATORVASTATIN 40 MG TABLET PO SCH (13:20)
[2021-10-25] MEDS: DOCUSATE SODIUM 100 MG CAPSULE PO SCH ×2 (13:20→21:36)
[2021-10-25] MEDS: RIFAXIMIN 550 MG TABLET PO SCH ×2 (13:21→21:33)
[2021-10-26] MEDS: VANCOMYCIN 50 MG/ML 60 ML/BOTTLE PO SCH ×4 (05:34→23:51)
[2021-10-26] MEDS: INSULIN REGULAR 100 UNIT/ML SUBCUT SCH ×4 (07:41→21:36)
[2021-10-26] MEDS: ATORVASTATIN 40 MG TABLET PO SCH (09:05)
[2021-10-26] MEDS: BICALUTAMIDE 50 MG TABLET PO SCH (09:05)
[2021-10-26] MEDS: DOCUSATE SODIUM 100 MG CAPSULE PO SCH ×2 (09:05→21:36)
[2021-10-26] MEDS: ASPIRIN EC 81 MG TABLET PO SCH (09:05)
[2021-10-26] MEDS: POTASSIUM CHLORIDE 20 MEQ TABLET PO SCH ×2 (09:05→21:36)
[2021-10-26] MEDS: PANTOPRAZOLE 40 MG TABLET PO SCH (09:05)
[2021-10-26] MEDS: RIFAXIMIN 550 MG TABLET PO SCH ×2 (09:06→21:36)
[2021-10-26] MEDS ORDERED: MAGNESIUM SULF RIDER 2 GM/50 ML PREMIX IV ONE (18:21)
[2021-10-26 19:06] LABS: Basophils % 0.3 % (0.0-0.8); Eosinophils % 0.8 % (0.00-10.9); Hematocrit 27.1 VOL% (42.0-52.0); Hemoglobin 8.6 GM/DL (14.0-18.0); Immature Granulocytes % 0.3 %; Immature Granulocytes Absolute 0.01 #; Lymphocytes # 1.8 10*3/uL (1.4-4.0); Lymphocytes % 46.3 % (21.2-54.2); Mean Corpuscular HGB Conc 31.7 GM/DL (32-36); Mean Corpuscular Volume 104.6 FL (87-102); Mean Platelet Volume 10.8 FL (9.6-12.0); Monocytes % 7.1 % (1.7-12.7); Neutrophils % 45.2 % (38.7-73.9); Platelet Count 207 T/CUMM (130-400); Red Blood Count 2.59 MC/CUMM (3.8-5.5); Red Cell Distribution Width 16.2 % (9.3-17.3); White Blood Count 3.8 T/CUMM (4-12)
[2021-10-26 19:23] LABS: Ferritin 425.7 ng/mL (26-388)
[2021-10-26 20:06] LABS: Sedimentation Rate-Westergren 63 MM/HR (0-20)
[2021-10-26 20:34] LABS: Folate 4.77 NG/ML (5.38-24.0); Vitamin B12 925 PG/ML (211-911)
[2021-10-27 05:11] LABS: Basophils % 0.5 % (0.0-0.8); Eosinophils # 0.1 10*3/uL (0.0-0.87); Eosinophils % 1.9 % (0.00-10.9); Hematocrit 24.1 VOL% (42.0-52.0); Hemoglobin 7.6 GM/DL (14.0-18.0); Immature Granulocytes % 0.5 %; Immature Granulocytes Absolute 0.02 #; Lymphocytes # 1.6 10*3/uL (1.4-4.0); Lymphocytes % 38.8 % (21.2-54.2); Mean Corpuscular HGB Conc 31.5 GM/DL (32-36); Mean Corpuscular Volume 105.2 FL (87-102); Monocytes % 11.8 % (1.7-12.7); Neutrophils % 46.5 % (38.7-73.9); Platelet Count 172 T/CUMM (130-400); Red Blood Count 2.29 MC/CUMM (3.8-5.5); Red Cell Distribution Width 16.3 % (9.3-17.3); White Blood Count 4.2 T/CUMM (4-12)
[2021-10-27 05:35] LABS: Calcium 7.5 MG/DL (8.5-10.1); Osmolality,Calculated 280.3 MOS/KG (273-304); Potassium 4.8 MMOL/L (3.5-5.1)
[2021-10-27 05:39] LABS: Risk Ratio 1.76; VLDL Cholesterol 9.2 MG/DL
[2021-10-27] MEDS: VANCOMYCIN 50 MG/ML 60 ML/BOTTLE PO SCH ×2 (05:40→11:21)
[2021-10-27] MEDS: INSULIN REGULAR 100 UNIT/ML SUBCUT SCH ×2 (07:40→11:16)
[2021-10-27] MEDS ORDERED: SODIUM CHLORIDE 0.9% 1,000 ML IV PRN (08:29)
[2021-10-27] MEDS: BICALUTAMIDE 50 MG TABLET PO SCH (09:45)
[2021-10-27] MEDS: POTASSIUM CHLORIDE 20 MEQ TABLET PO SCH (09:46)
[2021-10-27] MEDS: ATORVASTATIN 40 MG TABLET PO SCH (09:46)
[2021-10-27] MEDS: ASPIRIN EC 81 MG TABLET PO SCH (09:46)
[2021-10-27] MEDS: PANTOPRAZOLE 40 MG TABLET PO SCH (09:46)
[2021-10-27] MEDS: RIFAXIMIN 550 MG TABLET PO SCH (09:46)
[2021-10-27] MEDS: DOCUSATE SODIUM 100 MG CAPSULE PO SCH (09:47)
[2021-10-27 12:20] VITALS: BP 110/70
[2021-10-27] MEDS ORDERED: FOLIC ACID 1 MG TABLET PO SCH (21:00)
== END 2021-10-27 13:34 | disposition home health service (06) | DRG 372 ==
LOC: N.ED 15:15 → N.5E 15:15 → SUATTDRO 10-22 07:49
PROVIDERS: ADMIT Internal Medicine; ATTEND Internal Medicine

== ENCOUNTER 2021-11-25 15:29 | Inpatient (IN) ==
[2021-11-25 20:01] LABS: Basophils % 0.2 % (0.0-0.8); Hemoglobin 8.3 GM/DL (14.0-18.0); Immature Granulocytes % 0.6 %; Immature Granulocytes Absolute 0.03 #; Lymphocytes # 0.8 10*3/uL (1.4-4.0); Lymphocytes % 15.2 % (21.2-54.2); Mean Corpuscular HGB Conc 31.9 GM/DL (32-36); Mean Corpuscular Volume 104.4 FL (87-102); Mean Platelet Volume 10.7 FL (9.6-12.0); Monocytes % 4.3 % (1.7-12.7); Neutrophils % 79.7 % (38.7-73.9); Platelet Count 193 T/CUMM (130-400); Red Blood Count 2.49 MC/CUMM (3.8-5.5); Red Cell Distribution Width 17.2 % (9.3-17.3); White Blood Count 4.9 T/CUMM (4-12)
[2021-11-25 20:13] LABS: Bilirubin,Total 0.4 MG/DL (0.20-1.00); Calcium 7.3 MG/DL (8.5-10.1); Osmolality,Calculated 288.3 MOS/KG (273-304); Potassium 4.1 MMOL/L (3.5-5.1); Total Protein 4.7 G/DL (6.4-8.2)
[2021-11-25 21:41] LABS: ABG Base Excess -5.2 MMOL/L (-2.5-2.5); ABG HCO3 20.1 MMOL/L (20-26); ABG Oxygen Saturation 95.9 % (95-100); ABG PCO2 27.5 MM HG (35-48); ABG PH 7.429 (7.35-7.45)
[2021-11-25] MEDS ORDERED: MAGNESIUM SULF RIDER 2 GM/50 ML PREMIX IV ONE (22:25)
[2021-11-25] MEDS ORDERED: ONDANSETRON 4 MG/2 ML VIAL IV PRN (22:59)
[2021-11-25] MEDS ORDERED: DOCUSATE SODIUM 100 MG CAPSULE PO PRN (22:59)
[2021-11-25] MEDS ORDERED: diphenhydrAMINE CAP 25 MG CAPSULE PO PRN (22:59)
[2021-11-25] MEDS ORDERED: ZALEPLON 5 MG CAPSULE PO PRN (22:59)
[2021-11-25] MEDS ORDERED: DEXTROSE 50% 25 GM/50 ML VIAL IV PRN (22:59)
[2021-11-25] MEDS ORDERED: guaiFENesin/DM ER 600-30 MG TABLET PO PRN (22:59)
[2021-11-25] MEDS ORDERED: NICOTINE 21 MG/24 HR PATCH TRANSDERM PRN (22:59)
[2021-11-25] MEDS ORDERED: ACETAMINOPHEN 325 MG TABLET PO PRN (22:59)
[2021-11-25] MEDS ORDERED: hydrALAZINE 20 MG/1 ML VIAL IV PRN (22:59)
[2021-11-25] MEDS ORDERED: DEXTROSE 50% 25 GM/50 ML SYRINGE IV PRN (22:59)
[2021-11-25] MEDS ORDERED: GLUCAGON 1 MG VIAL IM PRN ×2 (22:59)
[2021-11-25] MEDS ORDERED: MAGNESIUM SULF RIDER 2 GM/50 ML PREMIX IV PRN (23:26)
[2021-11-25] MEDS: SODIUM CHLORIDE 0.9% 1,000 ML IV SCH (23:57)
[2021-11-26 04:38] LABS: Basophils % 0.3 % (0.0-0.8); Eosinophils % 0.8 % (0.00-10.9); Hematocrit 22.6 VOL% (42.0-52.0); Hemoglobin 7.4 GM/DL (14.0-18.0); Immature Granulocytes % 0.3 %; Immature Granulocytes Absolute 0.01 #; Lymphocytes # 1.3 10*3/uL (1.4-4.0); Lymphocytes % 34.6 % (21.2-54.2); Mean Corpuscular HGB Conc 32.7 GM/DL (32-36); Mean Corpuscular Volume 101.3 FL (87-102); Mean Platelet Volume 10.9 FL (9.6-12.0); Monocytes % 5.8 % (1.7-12.7); Neutrophils % 58.2 % (38.7-73.9); Platelet Count 144 T/CUMM (130-400); Red Blood Count 2.23 MC/CUMM (3.8-5.5); Red Cell Distribution Width 17.1 % (9.3-17.3); White Blood Count 3.8 T/CUMM (4-12)
[2021-11-26 05:01] LABS: Calcium 7.5 MG/DL (8.5-10.1); Osmolality,Calculated 281.4 MOS/KG (273-304); Potassium 3.9 MMOL/L (3.5-5.1)
[2021-11-26] MEDS: INSULIN LISPRO 100 UNIT/ML SUBCUT SCH ×4 (07:58→20:44)
[2021-11-26] MEDS ORDERED: HEPARIN 5,000 UNIT/1 ML VIAL SUBCUT SCH (09:00)
[2021-11-26] MEDS: PANTOPRAZOLE 40 MG TABLET PO SCH (09:13)
[2021-11-26] MEDS: SODIUM CHLORIDE 0.9% 1,000 ML IV SCH (13:55)
[2021-11-26] MEDS ORDERED: SODIUM CHLORIDE 0.9% 1,000 ML IV PRN (15:16)
[2021-11-27] MEDS: SODIUM CHLORIDE 0.9% 1,000 ML IV SCH ×2 (02:29→17:35)
[2021-11-27] MEDS ORDERED: SODIUM CHLORIDE 0.9% 1,000 ML IV SCH (04:05)
[2021-11-27 04:14] LABS: Calcium 7.4 MG/DL (8.5-10.1); Osmolality,Calculated 276.4 MOS/KG (273-304)
[2021-11-27 04:30] LABS: Eosinophils % 0.3 % (0.00-10.9); Hematocrit 28.2 VOL% (42.0-52.0); Lymphocytes # 0.7 10*3/uL (1.4-4.0); Lymphocytes % 25.3 % (21.2-54.2); Mean Corpuscular HGB Conc 32.6 GM/DL (32-36); Mean Corpuscular Volume 98.3 FL (87-102); Mean Platelet Volume 10.7 FL (9.6-12.0); Monocytes % 5.5 % (1.7-12.7); Neutrophils % 68.9 % (38.7-73.9); Platelet Count 170 T/CUMM (130-400); Red Cell Distribution Width 17.8 % (9.3-17.3); White Blood Count 2.9 T/CUMM (4-12)
[2021-11-27 04:35] LABS: Hemoglobin 9.2 GM/DL (14.0-18.0); Red Blood Count 2.87 MC/CUMM (3.8-5.5)
[2021-11-27 05:39] LABS: Bilirubin,Urine Negative (Negative); Blood, Urine Negative (Negative); Glucose,Urine (UA) 50 mg/dL (Negative); Ketones,Urine Negative (Negative); Mucus,Urine Occasional /LPF (Occasional); Nitrite,Urine Negative (Negative); Protein,Urine Negative; RBC,Urine 1 /HPF (0-4); Urine Appearance CLEAR (Clear); Urine Color Straw (Yellow); Urine Specific Gravity 1.005 (1.001-1.035); Urine Urobilinogen < 2.0 EU/DL (<2.0)
[2021-11-27] MEDS ORDERED: POTASSIUM CHLORIDE 20 MEQ TABLET PO ONE (07:29)
[2021-11-27] MEDS: INSULIN LISPRO 100 UNIT/ML SUBCUT SCH (09:50)
[2021-11-27] MEDS: PANTOPRAZOLE 40 MG TABLET PO SCH (09:57)
[2021-11-28] MEDS: PANTOPRAZOLE 40 MG TABLET PO SCH (08:42)
[2021-11-29 05:56] LABS: Basophils % 0.3 % (0.0-0.8); Eosinophils % 1.3 % (0.00-10.9); Hemoglobin 8.1 GM/DL (14.0-18.0); Immature Granulocytes % 0.3 %; Immature Granulocytes Absolute 0.01 #; Lymphocytes # 1.4 10*3/uL (1.4-4.0); Lymphocytes % 44.6 % (21.2-54.2); Mean Corpuscular HGB Conc 32.4 GM/DL (32-36); Mean Corpuscular Volume 98.8 FL (87-102); Monocytes % 7.6 % (1.7-12.7); Neutrophils % 45.9 % (38.7-73.9); Platelet Count 137 T/CUMM (130-400); Red Blood Count 2.53 MC/CUMM (3.8-5.5); Red Cell Distribution Width 18.5 % (9.3-17.3); White Blood Count 3.1 T/CUMM (4-12)
[2021-11-29 06:25] LABS: Potassium 3.8 MMOL/L (3.5-5.1)
[2021-11-29] MEDS: POTASSIUM CHLORIDE 20 MEQ TABLET PO SCH ×2 (10:03→21:06)
[2021-11-29] MEDS: BICALUTAMIDE 50 MG TABLET PO SCH (10:03)
[2021-11-29] MEDS: RIFAXIMIN 550 MG TABLET PO SCH (10:03)
[2021-11-29] MEDS: ASPIRIN EC 81 MG TABLET PO SCH (10:03)
[2021-11-29] MEDS: PANTOPRAZOLE 40 MG TABLET PO SCH (10:03)
[2021-11-29] MEDS: AZITHROMYCIN 250 MG TABLET PO SCH (10:06)
[2021-11-29] MEDS: FOLIC ACID 1 MG TABLET PO SCH (21:06)
[2021-11-30 06:23] LABS: Basophils % 0.3 % (0.0-0.8); Eosinophils # 0.1 10*3/uL (0.0-0.87); Eosinophils % 1.3 % (0.00-10.9); Hematocrit 27.6 VOL% (42.0-52.0); Hemoglobin 8.9 GM/DL (14.0-18.0); Immature Granulocytes % 0.3 %; Immature Granulocytes Absolute 0.01 #; Lymphocytes # 1.9 10*3/uL (1.4-4.0); Lymphocytes % 51.1 % (21.2-54.2); Mean Corpuscular HGB Conc 32.2 GM/DL (32-36); Mean Corpuscular Volume 98.6 FL (87-102); Mean Platelet Volume 10.9 FL (9.6-12.0); Monocytes % 6.2 % (1.7-12.7); Neutrophils % 40.8 % (38.7-73.9); Platelet Count 149 T/CUMM (130-400); Red Cell Distribution Width 18.6 % (9.3-17.3); White Blood Count 3.7 T/CUMM (4-12)
[2021-11-30] MEDS: LEVOTHYROXINE 25 MCG TABLET PO SCH (06:35)
[2021-11-30 06:55] LABS: Calcium 7.4 MG/DL (8.5-10.1); Osmolality,Calculated 281.3 MOS/KG (273-304)
[2021-11-30] MEDS ORDERED: MAGNESIUM SULF RIDER 2 GM/50 ML PREMIX IV ONE (07:37)
[2021-11-30 08:10] LABS: Albumin 0.9 G/DL (3.4-5.0); Bilirubin,Direct 0.11 MG/DL (0.0-0.20); Bilirubin,Indirect 1.7 MG/DL (0.0-1.0); Bilirubin,Total 1.8 MG/DL (0.20-1.00); Total Protein 4.4 G/DL (6.4-8.2)
[2021-11-30] MEDS: POTASSIUM CHLORIDE 20 MEQ TABLET PO SCH ×2 (10:00→22:46)
[2021-11-30] MEDS: ASPIRIN EC 81 MG TABLET PO SCH (10:00)
[2021-11-30] MEDS: RIFAXIMIN 550 MG TABLET PO SCH (10:00)
[2021-11-30] MEDS: PANTOPRAZOLE 40 MG TABLET PO SCH (10:00)
[2021-11-30] MEDS: BICALUTAMIDE 50 MG TABLET PO SCH (10:00)
[2021-11-30] MEDS: AZITHROMYCIN 250 MG TABLET PO SCH (10:00)
[2021-11-30] MEDS: MAGNESIUM OXIDE 400 MG TABLET PO SCH (10:00)
[2021-11-30] MEDS: FOLIC ACID 1 MG TABLET PO SCH (22:46)
[2021-12-01 05:59] LABS: Basophils % 0.3 % (0.0-0.8); Eosinophils # 0.1 10*3/uL (0.0-0.87); Hematocrit 25.7 VOL% (42.0-52.0); Hemoglobin 8.4 GM/DL (14.0-18.0); Lymphocytes # 1.5 10*3/uL (1.4-4.0); Lymphocytes % 48.5 % (21.2-54.2); Mean Corpuscular HGB Conc 32.7 GM/DL (32-36); Mean Corpuscular Volume 98.8 FL (87-102); Monocytes % 8.5 % (1.7-12.7); Neutrophils % 40.7 % (38.7-73.9); Platelet Count 142 T/CUMM (130-400); Red Cell Distribution Width 18.5 % (9.3-17.3); White Blood Count 3.1 T/CUMM (4-12)
[2021-12-01 06:22] LABS: Eosinophils 1 % (0-10); Lymphocytes 36 % (20-55); Platelet Estimate Adequate; Segmented Neutrophils 59 % (50-85); Total Cells Counted 100
[2021-12-01 06:23] LABS: Hypochromia 1+; Microcytosis 1+
[2021-12-01 06:25] LABS: Calcium 7.4 MG/DL (8.5-10.1); Osmolality,Calculated 277.5 MOS/KG (273-304); Potassium 4.8 MMOL/L (3.5-5.1)
[2021-12-01] MEDS: LEVOTHYROXINE 25 MCG TABLET PO SCH (06:38)
[2021-12-01] MEDS: BICALUTAMIDE 50 MG TABLET PO SCH (10:48)
[2021-12-01] MEDS: MAGNESIUM OXIDE 400 MG TABLET PO SCH (10:48)
[2021-12-01] MEDS: POTASSIUM CHLORIDE 20 MEQ TABLET PO SCH ×2 (10:48→20:40)
[2021-12-01] MEDS: AZITHROMYCIN 250 MG TABLET PO SCH (10:48)
[2021-12-01] MEDS: RIFAXIMIN 550 MG TABLET PO SCH (10:48)
[2021-12-01] MEDS: ASPIRIN EC 81 MG TABLET PO SCH (10:49)
[2021-12-01] MEDS: PANTOPRAZOLE 40 MG TABLET PO SCH (10:49)
[2021-12-01] MEDS: FOLIC ACID 1 MG TABLET PO SCH (20:41)
[2021-12-02] MEDS: LEVOTHYROXINE 25 MCG TABLET PO SCH (05:59)
[2021-12-02 08:33] LABS: Basophils % 0.4 % (0.0-0.8); Eosinophils # 0.1 10*3/uL (0.0-0.87); Eosinophils % 1.8 % (0.00-10.9); Immature Granulocytes % 0.7 %; Immature Granulocytes Absolute 0.02 #; Lymphocytes # 1.3 10*3/uL (1.4-4.0); Lymphocytes % 47.8 % (21.2-54.2); Mean Corpuscular HGB Conc 33.3 GM/DL (32-36); Mean Corpuscular Volume 97.2 FL (87-102); Mean Platelet Volume 11.6 FL (9.6-12.0); Monocytes % 7.9 % (1.7-12.7); Neutrophils % 41.4 % (38.7-73.9); Platelet Count 125 T/CUMM (130-400); Red Blood Count 2.47 MC/CUMM (3.8-5.5); Red Cell Distribution Width 18.4 % (9.3-17.3); White Blood Count 2.8 T/CUMM (4-12)
[2021-12-02 08:50] LABS: Calcium 7.3 MG/DL (8.5-10.1); Osmolality,Calculated 280.3 MOS/KG (273-304); Potassium 3.9 MMOL/L (3.5-5.1)
[2021-12-02] MEDS: PANTOPRAZOLE 40 MG TABLET PO SCH (09:15)
[2021-12-02] MEDS: ASPIRIN EC 81 MG TABLET PO SCH (09:15)
[2021-12-02] MEDS: BICALUTAMIDE 50 MG TABLET PO SCH (09:15)
[2021-12-02] MEDS: MAGNESIUM OXIDE 400 MG TABLET PO SCH (09:15)
[2021-12-02] MEDS: RIFAXIMIN 550 MG TABLET PO SCH (09:15)
[2021-12-02] MEDS: POTASSIUM CHLORIDE 20 MEQ TABLET PO SCH (09:15)
[2021-12-02] MEDS: AZITHROMYCIN 250 MG TABLET PO SCH (09:15)
[2021-12-02 09:40] LABS: Target Cells Few
[2021-12-02 09:41] LABS: Hypochromia 1+; Microcytosis 1+
[2021-12-02 09:43] LABS: Platelet Estimate Adequate
[2021-12-02 11:28] VITALS: BP 113/74
== END 2021-12-02 13:34 | disposition swing bed (61) | DRG 683 ==
LOC: N.ED 15:29 → N.EDINP 22:59 → SUATTDRO 22:59 → N.EDINP 11-26 00:45 → N.TELES 11-26 01:20
PROVIDERS: ADMIT Internal Medicine; ATTEND Internal Medicine